=== PATIENT | male | born 1990 | race Two or more races ===

== ENCOUNTER 2017-01-12 14:11 | Emergency (ER) | payer OTHER ==
[2017-01-12] MEDS ORDERED: ONDANSETRON 4 MG/2ML 2 ML VIAL ONE (14:41)
[2017-01-12] MEDS ORDERED: MAALOX/LIDO2%VISC/SIMETHICONE 40 ML BOT ONE (14:41)
[2017-01-12] MEDS ORDERED: LACTATED RINGERS 1,000 ML ONE (14:41)
[2017-01-12 15:08] LABS: ABSOLUTE NEUTROPHIL COUNT 3.9 K/mm3 (1.8-7.7); BASO % 0.2 % (0.2-1.0); EOS # 0.1 (0.0-0.5); HEMATOCRIT 47.9 % (32.0-52.0); HEMOGLOBIN 16.1 gm/l (14.0-18.0); IMM NEUT% 0.6 % (0-1); LYMPH # 0.7 (1.0-4.8); LYMPH % 14.4 % (15-45); MEAN CELL VOLUME 93.4 fl (80.0-94.0); MEAN CORPUSCULAR HEMOGLOBIN 31.4 pg (27.0-31.0); MEAN CORPUSCULAR HGB CONC 33.6 g/dl (33.0-37.0); MEAN PLATELET VOLUME 9.7 fl (7.4-10.4); MONO # 0.4 (0.0-0.8); MONO % 8.4 % (4-12); NEUT % 75.4 % (43-75); PLATELET COUNT 202 K/mm3 (130-400); RED CELL DISTRIBUTION WIDTH 12.3 % (11.5-14.5)
[2017-01-12 15:09] LABS: ALB/GLOB RATIO 1.4 (>1.0); ALBUMIN 3.9 gm/dL (3.5-5.7); CALCIUM 9.1 mg/dL (8.6-10.3); MAGNESIUM 2.1 mg/dL (1.9-2.7)
== END 2017-01-12 15:44 | disposition home or self-care (01) ==
LOC: ED 14:11
DX: R10.13 Epigastric pain (principal); R11.2 Nausea with vomiting, unspecified; R19.7 Diarrhea, unspecified
CPT/HCPCS: 83690; 85025; 80053; 83735; 99283 ×2; 96374; A9270; J2405; J7120